=== PATIENT | male | born 1940 | race Caucasian/White ===

== ENCOUNTER 2017-01-13 06:44 | Day surgery (SDC) | payer OTHER ==
[2017-01-13] MEDS ORDERED: TETRACAINE 0.5% OPHTH 1 DOSE AFFEYE ONE ×2 (07:26→09:41)
[2017-01-13] MEDS ORDERED: NS 500 ML IV 500 ML IV ONE (07:27)
[2017-01-13] MEDS ORDERED: VIGAMOX 0.5% OPHTH 1 DOSE AFFEYE ONE ×5 (07:27→10:01)
[2017-01-13] MEDS ORDERED: PROLENSA OPHTH 1 DOSE AFFEYE ONE (07:38)
[2017-01-13] MEDS ORDERED: ALPHAGAN-P OPHTH 1 DOSE AFFEYE ONE (07:39)
[2017-01-13] MEDS ORDERED: CYCLOGYL 1% OPHTH 1 DOSE OP ONE ×3 (07:40→07:43)
[2017-01-13] MEDS ORDERED: AK-DILATE 2.5% OPHTH 1 DOSE OP ONE ×4 (07:40→07:43)
[2017-01-13] MEDS ORDERED: MYDRIACIL OPHTH 1 DOSE AFFEYE ONE ×4 (07:40→07:43)
[2017-01-13] MEDS ORDERED: CYCLOGYL 1% OPHTH 1 DOSE AFFEYE ONE (07:42)
[2017-01-13] MEDS ORDERED: BETADINE OPHTH SOLN 5% EACHEYE ONE (09:41)
[2017-01-13] MEDS ORDERED: XYLOCAINE-MPF 1% IJ ONE ×2 (09:46→09:51)
[2017-01-13] MEDS ORDERED: DUOVISC IO ONE ×2 (09:46→09:51)
[2017-01-13] MEDS ORDERED: ADRENALINE CHL INJ IJ ONE ×2 (09:46→09:51)
[2017-01-13] MEDS ORDERED: BSS OPHTH (PLAIN) 500 ML with VANCOMYCIN HCL 500 MG VIAL 25 MG, ADRENALINE CHL INJ 1 MG IR ONE ×6 (09:46)
[2017-01-13 11:55] VITALS: BP 164/82
== END 2017-01-13 10:27 | disposition home or self-care (01) ==
LOC: SURG1 06:44
PROVIDERS: ATTEND Ophthalmology
PROC: 08RJ3JZ Replacement of Right Lens with Synthetic Substitute, Percutaneous Approach (ICD-10-PCS; principal; 2017-01-13 09:45)
PROC: 08DJ3ZZ Extraction of Right Lens, Percutaneous Approach (ICD-10-PCS; principal; 2017-01-13 09:45)
DX: H25.11 Age-related nuclear cataract, right eye (principal); H25.011 Cortical age-related cataract, right eye
CPT/HCPCS: 99100; A4217; J0170; J3370

== ENCOUNTER 2017-02-08 19:48 | Observation (INO) | payer OTHER ==
[2017-02-08] MEDS: ASPIRIN PO SCH (20:08)
[2017-02-08] MEDS: NITROSTAT SL PRN ×2 (20:09→20:16)
[2017-02-08 20:37] LABS: BASOPHILS % (AUTO) 0.6 % (0.2-1.0); EOSINOPHILS # (AUTO) 0.2 x10^3/uL (0.0-0.2); EOSINOPHILS % (AUTO) 3.9 % (0.9-2.9); HEMATOCRIT 32.6 % (42.0-54.0); HEMOGLOBIN 11.6 g/dL (13.5-18.0); LYMPHOCYTES # (AUTO) 0.8 X10^3/uL (1.3-2.9); LYMPHOCYTES % (AUTO) 20.1 % (21.0-51.0); MEAN CORPUSCULAR HEMOGLOBIN 33.3 pg (27.0-34.0); MEAN CORPUSCULAR HGB CONC 35.6 g/dL (33.0-35.0); MEAN CORPUSCULAR VOLUME 93.5 fL (80.0-100.0); MONOCYTES # (AUTO) 0.4 x10^3/uL (0.3-0.8); MONOCYTES % (AUTO) 9.3 % (0.0-13.0); NEUTROPHILS # (AUTO) 2.7 x10^3/uL (2.2-4.8); NEUTROPHILS % (AUTO) 66.1 % (42.0-75.0); PLATELET COUNT 71 X10^3/uL (150.0-450.0); RED BLOOD COUNT 3.49 X10^6/uL (4.7-6.0); RED CELL DISTRIBUTION WIDTH 14.3 % (11.6-16.5); WHITE BLOOD COUNT 4.1 X10^3/uL (3.6-10.0)
--- NOTE | 2017-02-08 20:44 | DR.GENAD ---
HPI - PCP Primary Care Physician: aminata - Complaint/Symptoms Chief Complaint Doctors Comments: History as stated. He reports that he has no pain but pressure. He denies a history of cardiopulmonary disease but was evaluated by vacuum forming machine operator two months because of an abnormal study by primary care physician. The cardialogist stated that he had no heart disease. He retired and is does primary yard work. Chief Complaint:: pt states" it all started thursday with my with sore throat i took some amoxil i had at the house. today my chest started hurting not sharp but pressure and it makes me weak" - Source History Provided: Patient - Mode of Arrival Mode of Arrival: Ambulatory - Timing Onset of Chief Complaint: 02/04/17 PMH - PMH Past Medical History: Yes Past Medical History: Coronary Artery Disease, Diabetes, Hypertension Past Medical History Comment: myoplastic syndrome Past Surgical History: Yes Surgical History: Joint Replacement Past Surgical History Comment: rt hip twice, - Family History History of Family Medical Conditions: No - Social History Does any household member use tobacco: No Alcohol Use: None Do you use any recreational Drugs:: No Lives With: Family Lives Where: Home - infectious screening In the last 2 months have you had wt loss of >10#?: NO Have you had fever, night sweats or hemotysis?: No Have you traveled outside the country in the last 6 months?: No Isolation: Standard ROS - Review of Systems Constitutional: No Symptoms Reported Eyes: No Symptoms Reported ENTM: No Symptoms Reported Respiratoy: No Symptoms Reported Cardiovascular: No Symptoms Reported Gastrointestinal/Abdominal: No Symptoms Reported Genitourinary: No Symptoms Reported Neurological: No Symptoms Reported Musculoskeletal: No Symptoms Reported Integumentary: No Symptoms Reported Hematologic/Lymphatic: No Symptoms Reported Endocrine: No Symptoms Reported Psychiatric: No Symptoms Reported All Other Systems: Reviewed and Negative PE - Vital Signs Vitals: Temperature 98.2 F Pulse Rate [Apical] 68 Pulse Rate 68 Respiratory Rate 18 Blood Pressure [Right Arm] 147/76 Blood Pressure 131/69 O2 Sat by Pulse Oximetry 99 - General Limitations: No Limitations General Appearance: Alert - Head Head Exam: Normal Inspection, Atraumatic - Eyes Eye exam: Normal Appearance, PERRL, EOMI - ENT ENT Exam: Normal Exam External Ear Exam: Normal External Inspection TM/Canal Exam: Bilateral Normal Nose Exam: Normal Nose Exam Mouth Exam: Normal Inspection Throat Exam: Normal Inspection - Neck Neck Exam: Normal Inspection - Chest Chest Inspection: Normal Inspection - Respiratory Respiratory Exam: Normal Lung Sounds Bilat Respiratory Exam: Bilateral Clear to Auscultation - Cardiovascular Cardiovascular Exam: Regular Rate, Normal Rhythm - Back Back Exam: Normal Inspection - Neurologic Neurological Exam: Alert, Oriented X3, CN II-XII Intact - Psychiatric Psychiatric Exam: Normal Affect - Skin Skin Exam: Warm, Dry, Intact ROR - Labs Reviewed Result Diagrams: 02/08/17 20:15 02/08/17 20:15 Laboratory: WBC 4.1 X10^3/uL (3.6-10.0) 02/08/17 20:15 RBC 3.49 X10^6/uL (4.7-6.0) L 02/08/17 20:15 Hgb 11.6 g/dL (13.5-18.0) L 02/08/17 20:15 Hct 32.6 % (42.0-54.0) L 02/08/17 20:15 MCV 93.5 fL (80.0-100.0) 02/08/17 20:15 MCH 33.3 pg (27.0-34.0) 02/08/17 20:15 MCHC 35.6 g/dL (33.0-35.0) H 02/08/17 20:15 RDW 14.3 % (11.6-16.5) 02/08/17 20:15 Plt Count 71 X10^3/uL (150.0-450.0) L 02/08/17 20:15 MPV 8.0 fL (7.4-11.0) 02/08/17 20:15 Neut % 66.1 % (42.0-75.0) 02/08/17 20:15 Lymph % 20.1 % (21.0-51.0) L 02/08/17 20:15 [place] % 9.3 % (0.0-13.0) 02/08/17 20:15 Eos % 3.9 % (0.9-2.9) H 02/08/17 20:15 Baso % 0.6 % (0.2-1.0) 02/08/17 20:15 Neut # 2.7 x10^3/uL (2.2-4.8) 02/08/17 20:15 Lymph # 0.8 X10^3/uL (1.3-2.9) L 02/08/17 20:15 [place] # 0.4 x10^3/uL (0.3-0.8) 02/08/17 20:15 Eos # 0.2 x10^3/uL (0.0-0.2) 02/08/17 20:15 Baso # 0.0 X10^3/uL (0.0-0.1) 02/08/17 20:15 Absolute Nucleated RBC 0.1 /100WBC 02/08/17 20:15 INR Target Range - 02/08/17 20:15 INR 1.15 (0.8-1.3) 02/08/17 20:15 PTT 41.5 SECONDS (22.9-36.5) H 02/08/17 20:15 PTT Comment - 02/08/17 20:15 Sodium 140 mmol/L (136-145) 02/08/17 20:15 Corrected Sodium 144 mmol/L (136-145) 02/08/17 20:15 Potassium 4.0 mmol/L (3.5-5.1) 02/08/17 20:15 Chloride 104 mmol/L (98-107) 02/08/17 20:15 Carbon Dioxide 27.0 mmol/L (21-32) 02/08/17 20:15 BUN 25 mg/dL (7-18) H 02/08/17 20:15 Creatinine 1.70 mg/dL (0.70-1.30) H 02/08/17 20:15 Est GFR (MDRD) Af Amer 51 (>60) L 02/08/17 20:15 Est GFR (MDRD) Non-Af 42 (>60) L 02/08/17 20:15 Glucose 268 mg/dL (65-99) H 02/08/17 20:15 Calcium 8.4 mg/dL (8.5-10.1) L 02/08/17 20:15 Corrected Calcium TNP 02/08/17 20:15 Magnesium 2.0 mg/dL (1.7-2.9) 02/08/17 20:15 Total Bilirubin 0.90 mg/dL (0.2-1.0) 02/08/17 20:15 AST 15 Units/L (15-37) 02/08/17 20:15 ALT 23 Units/L (12-78) 02/08/17 20:15 Alkaline Phosphatase 62 Units/L (46-116) 02/08/17 20:15 Creatine Kinase 106 Units/L (39-308) 02/08/17 20:15 CK-MB (CK-2) 2.9 ng/mL (0-4.0) 02/08/17 20:15 CK/CKMB % Calc 2.7 % (<4) 02/08/17 20:15 Troponin I < 0.02 ng/mL (0-1.5) 02/08/17 20:15 Total Protein 6.6 g/dL (6.4-8.2) 02/08/17 20:15 Albumin 3.7 g/dL (3.4-5.0) 02/08/17 20:15 Globulin 2.9 g/dL (2.5-4.5) 02/08/17 20:15 Albumin/Globulin Ratio 1.3 Ratio (1.1-2.1) 02/08/17 20:15 - XRAY XRAY Interpreted by: Radiologist (Chest: mild cardiomegaly w/o acute chest process) - EKG Rate: 68 [place]: LAD - Diagnosis Discharge Problem: Chest pain Qualifiers: Chest pain type: unspecified Qualified Code(s): R07.9 - Chest pain, unspecified - Follow ups/Referrals Follow ups/Referrals: Darren Castellanos [Primary Care Provider] - 3 days - Instructions
--- NOTE | 2017-02-08 20:48 | RAD ---
Chest, one view Indication: Chest pain. Comparison: None Findings: There is mild cardiac silhouette enlargement with pulmonary vascular congestion. No overt edema, focal infiltrates, or pleural effusion identified. The bony thorax is unremarkable. Impression: Mild cardiomegaly without acute chest process. Reported By:
[2017-02-08 20:49] LABS: ALANINE AMINOTRANSFERASE 23 Units/L (12-78); ALBUMIN 3.7 g/dL (3.4-5.0); ALKALINE PHOSPHATASE 62 Units/L (46-116); ASPARTATE AMINO TRANSFERASE 15 Units/L (15-37); BLOOD UREA NITROGEN 25 mg/dL (7-18); CALCIUM 8.4 mg/dL (8.5-10.1); CHLORIDE 104 mmol/L (98-107); COR NA(FOR HYPERGLY) 144 mmol/L (136-145); GLUCOSE 268 mg/dL (65-99); SODIUM 140 mmol/L (136-145); TOTAL PROTEIN 6.6 g/dL (6.4-8.2); eGFR BLACK RACES 51 (>60); eGFR NON BLACK RACES 42 (>60)
[2017-02-08 21:18] LABS: CKMB % 2.7 % (<4); CREATINE KINASE 106 Units/L (39-308); CREATINE KINASE MB 2.9 ng/mL (0-4.0); TROPONIN I < 0.02 ng/mL (0-1.5)
[2017-02-08] MEDS ORDERED: MORPHINE SULFATE INJ 4 MG IVP PRN (22:04)
[2017-02-08] MEDS ORDERED: ZOFRAN INJ 4 MG VIAL IVP PRN (22:05)
[2017-02-08 23:23] VITALS: BMI 23.3
[2017-02-09] MEDS ORDERED: RESTORIL CAP 15 MG PO PRN (00:58)
[2017-02-09 03:18] LABS: CHOL/HDL RATIO 2.2 (0.0-5.0)
[2017-02-09 03:24] LABS: CKMB % 3.2 % (<4); CREATINE KINASE MB 2.4 ng/mL (0-4.0); TROPONIN I 0.02 ng/mL (0-1.5)
[2017-02-09] MEDS ORDERED: LIORESAL PO SCH (06:00)
[2017-02-09 08:15] VITALS: BP 147/81
[2017-02-09 08:16] LABS: CKMB % 3.1 % (<4); CREATINE KINASE MB 2.2 ng/mL (0-4.0); TROPONIN I 0.02 ng/mL (0-1.5)
[2017-02-09] MEDS ORDERED: GLUCOPHAGE ONE (08:21)
[2017-02-09] MEDS: ASPIRIN PO SCH (08:28)
[2017-02-09 08:29] LABS: BASOPHILS % (AUTO) 0.7 % (0.2-1.0); EOSINOPHILS # (AUTO) 0.1 x10^3/uL (0.0-0.2); EOSINOPHILS % (AUTO) 4.1 % (0.9-2.9); HEMATOCRIT 32.5 % (42.0-54.0); HEMOGLOBIN 11.6 g/dL (13.5-18.0); LYMPHOCYTES # (AUTO) 0.7 X10^3/uL (1.3-2.9); MEAN CORPUSCULAR HEMOGLOBIN 33.5 pg (27.0-34.0); MEAN CORPUSCULAR HGB CONC 35.6 g/dL (33.0-35.0); MEAN PLATELET VOLUME 7.9 fL (7.4-11.0); MONOCYTES # (AUTO) 0.4 x10^3/uL (0.3-0.8); MONOCYTES % (AUTO) 10.6 % (0.0-13.0); NEUTROPHILS # (AUTO) 2.4 x10^3/uL (2.2-4.8); NEUTROPHILS % (AUTO) 64.6 % (42.0-75.0); PLATELET COUNT 67 X10^3/uL (150.0-450.0); RED BLOOD COUNT 3.46 X10^6/uL (4.7-6.0); RED CELL DISTRIBUTION WIDTH 14.3 % (11.6-16.5); WHITE BLOOD COUNT 3.6 X10^3/uL (3.6-10.0)
[2017-02-09 08:47] LABS: ALANINE AMINOTRANSFERASE 21 Units/L (12-78); ALBUMIN 3.5 g/dL (3.4-5.0); ALKALINE PHOSPHATASE 77 Units/L (46-116); ASPARTATE AMINO TRANSFERASE 15 Units/L (15-37); BLOOD UREA NITROGEN 22 mg/dL (7-18); CALCIUM 8.5 mg/dL (8.5-10.1); CARBON DIOXIDE 29.2 mmol/L (21-32); CHLORIDE 106 mmol/L (98-107); COR NA(FOR HYPERGLY) 147 mmol/L (136-145); CREATININE 1.49 mg/dL (0.70-1.30); GLUCOSE 275 mg/dL (65-99); SODIUM 143 mmol/L (136-145); TOTAL PROTEIN 6.5 g/dL (6.4-8.2); eGFR BLACK RACES 59 (>60); eGFR NON BLACK RACES 49 (>60)
[2017-02-09] MEDS ORDERED: GLUCOPHAGE PO SCH (09:00)
[2017-02-09] MEDS ORDERED: NORVASC TAB 10 MG PO SCH (09:00)
[2017-02-09] MEDS ORDERED: JANUVIA PO SCH (09:00)
[2017-02-09] MEDS ORDERED: [UNRECOGNIZED DRUG - OTHER] PO SCH (09:00)
[2017-02-09] MEDS ORDERED: DITROPAN TAB 5 MG PO SCH (09:00)
[2017-02-09] MEDS ORDERED: INDOCIN CAP 25 MG PO SCH (09:00)
[2017-02-09] MEDS ORDERED: ASPIRIN EC 81 MG PO SCH (09:00)
[2017-02-09] MEDS ORDERED: ZESTRIL TAB 40 MG PO SCH (09:00)
[2017-02-09] MEDS ORDERED: PATIENT'S HOME MEDICATION RESPIRATORY (Oxybutynin Chloride [Ditropan Xl] 10 MG) PO SCH (09:00)
--- NOTE | 2017-02-09 10:46 | DR.CARTERS ---
Short Stay Summary - Short Stay Summary for: Short Stay Summary for Date of:: 02/09/17 - Admission Date Date of Admission: 02/08/17 - Discharge Date Discharge Date: 02/09/17 - Admission Diagnoses (1) Chest pain, rule out acute myocardial infarction Status: Acute (2) HTN (hypertension) Status: Chronic (3) Diabetes mellitus type I Status: Chronic (4) Gout Status: Chronic (5) Hypothyroidism Status: Chronic (6) Arthritis Status: Chronic - Hospital Course Hospital Course: DAY ONE OF HOSPITAL STAY, THIS IS 76 YEAR OLD MALE, WHO IS A PATIENT OF OURS. HE PRESENTED TO THE EMERGENCY ROOM WITH COMPLAINTS OF CHEST PRESSURE WITH WEAKNESS. HE STATED HE HAD A SORE THROAT ON THURSDAY AND TOOK AMOXIL WITH IMPROVEMENT IN SORE THROAT; HOWEVER, THIS DAY HE STATED CHEST PRESSURE BEGAN AND HAD WORSENED. HE DENIED CHEST PAIN, ONLY PRESSURE. HE HAD A STRESS TEST RECENTLY IN OUR OFFICE THAT WAS ABNORMAL AND WE HAD HIM FOLLOW UP WITH CARDIOLOGY FOR FURTHER EVALUATION. SPORT SHOE SPIKE ASSEMBLER RULED OUT HEART DISEASE. LABS WERE OBTAINED IN ER. CBC WNL EXCEPT: H/H 11.6/32.6, PLT COUNT 71. CMP WNL EXCEPT: BUN/CREAT 25/1.70, GFR 42, GLUCOSE 268, CALCIUM 8.4. CARDIAC ENZYMES WNL. EKG: SINUS RHYTHM, RATE 68. WE ADMITTED PATIENT TO HOSPITAL FOR FURTHER TREATMENT AND EVALUATION. DAY TWO OF HOSPITAL STAY, PATIENT REPORTED HE WAS FEELING BETTER. HE SAT UP IN BED, WITH PLEASANT AFFECT. PATIENT DENIED CHEST PAIN OR PRESSURE. WE DISCUSSED FURTHER CARDIAC WORKUP OUTPATIENT WITH SPORT SHOE SPIKE ASSEMBLER, PERHAPS A HEART CATH. PATIENT VOICES UNDERSTANDING. CARDIAC ENZYMES WNL. EKG: SINUS RHYTHM WITH OCC PAC, RATE 60. CBC WNL EXCEPT: H/H 11.6/32.5, PLT COUNT 67. CMP WNL EXCEPT: BUN/CREAT 22/1.49, GFR 49, GLUCOSE 275. FLP WNL. WE PLANNED FOR DISCHARGE. INSTRUCTIONS FOR MEDICATIONS AND FOLLOW UP WERE GIVEN TO PATIENT AND FAMILY, BOTH VOICED UNDERSTANDING. WE WILL CONTINUE PATIENT ON ASPIRIN 325MG, NORVASC 10MG, AND LIPITOR 20MG. PATIENT WAS DISCHARGED HOME IN STABLE CONDITION WITH FAMILY. - Discharge Medications Discharge Medications: Allopurinol [ZYLOPRIM tab 100 mg *] 100 mg PO DAILY 02/08/17 [History] Amlodipine Besylate [NORVASC 10 MG *] 10 mg PO DAILY 02/08/17 [History] Aspirin [Aspirin Adult Low Dose] 81 mg PO DAILY 02/08/17 [History] Atorvastatin Calcium [LIPITOR Tab 20 mg *] 20 mg PO HS 02/08/17 [History] Baclofen 10 mg PO TID 02/08/17 [History] Indomethacin [Indomethacin 50 mg] 50 mg PO DAILY 02/08/17 [History] Levothyroxine Sodium [SYNTHROID 25 mcg *] 1 tab PO DAILYAC 02/08/17 [History] Lisinopril 40 mg PO DAILY 02/08/17 [History] Metformin HCl [GLUCOPHAGE 500 MG *] 500 mg PO BID 02/08/17 [History] Oxybutynin Chloride [Ditropan XL] 10 mg PO DAILY 02/08/17 [History] Sitagliptin Phosphate [JANUVIA 100 MG *] 100 mg PO DAILY 02/08/17 [History] - Discharge Plan Disposition: 01 HOME, SELF-CARE Condition: Stable - Follow up/Referrals Follow up/Referrals: Darren Castellanos [Primary Care Provider] - 02/16/17 2:10 am - Instructions Instructions: Type 1 Diabetes Mellitus, Adult, Hypertension, [id number], Acute Coronary Syndrome Additional Instructions: ACTIVITY TOLERATED. DIET TOLERATED. Forms: Patient Portal
[2017-02-09] MEDS ORDERED: SYNTHROID 25 mcg TAB PO SCH (16:30)
[2017-02-09] MEDS ORDERED: SNACK - Diabetic Appropriate PO SCH (20:00)
[2017-02-09] MEDS ORDERED: LIPITOR TAB 20 MG PO SCH (21:00)
== END 2017-02-09 11:01 | disposition home or self-care (01) ==
LOC: ER 19:48 → MED/SURG 21:57
PROVIDERS: ADMIT Obstetrics & Gynecology Obstetrics; ATTEND Internal Medicine
DX: R07.89 Other chest pain (principal); I25.10 Atherosclerotic heart disease of native coronary artery without angina pectoris; E10.65 Type 1 diabetes mellitus with hyperglycemia; I10 Essential (primary) hypertension; I51.7 Cardiomegaly; E03.8 Other specified hypothyroidism; M13.89 Other specified arthritis, multiple sites; M1A.9XX0 Chronic gout, unspecified, without tophus (tophi); D64.89 Other specified anemias; R79.1 Abnormal coagulation profile; R94.4 Abnormal results of kidney function studies
CPT/HCPCS: 36415; 71010; 80053; 80061; 82550; 82553; 83735; 84484; 85025; 85610; 85730; 93005; 94760; 96365; 99284; A4222; G0378